=== PATIENT | female | born 1965 | race Caucasian/White ===

== ENCOUNTER 2016-08-29 16:49 | Emergency (ER) | payer MEDICARE, OTHER ==
--- NOTE | 2016-08-29 20:44 | US ---
EXAMINATION: DUPLEX VENOUS DOPPLER ULTRASOUND:LEFT LOWER EXTREMITY CLINICAL INDICATION: Left lower extremity pain and swelling. On clindamycin with no improvement. COMPARISON: None TECHNIQUE: Both grayscale imaging and Doppler interrogation with spectral analysis and color flow was performed. Compression and flow with augmentation was also utilized. The common femoral vein to the posterior tibial and peroneal veins were assessed. FINDINGS:Appropriate compressibility and flow is demonstrated in the left common femoral, superficial femoral, popliteal, and peroneal and posterior tibial veins proximally. Normal Doppler flow with augmentation was also elicited. IMPRESSION: No evidence of left lower committee deep venous thrombosis. The findings were uploaded to the electronic medical record for review at approximately 8:46 PM 08/29/2016
== END 2016-08-29 21:02 | disposition home or self-care (01) ==
LOC: ED 16:49
DX: L03.116 Cellulitis of left lower limb (principal); B96.89 Other specified bacterial agents as the cause of diseases classified elsewhere; M32.9 Systemic lupus erythematosus, unspecified